=== PATIENT | male | born 1995 | race Caucasian/White ===

== ENCOUNTER 2019-12-14 18:09 | Emergency (ER) | payer SELFPAY ==
[~2019-12-14] VITALS: Ht 172.7 cm; Wt 75.3 kg
--- NOTE | 2019-12-14 18:09 | NUR ---
Patient BIB [facility] for pre-booking medical screening exam, transferred to bed [facility].
[2019-12-14 18:12] VITALS: BP 106/63
--- NOTE | 2019-12-14 18:17 | NUR ---
24 Y/O MALE BIB [facility] FOR PREBOOK CLEARANCE. PT WAS TASED ON SCENE BY [facility] FOR BEING NON-COMPLIANT. TASED TO RT RIB CAGE, PROBE REMOVED PRIOR TO ARRIVAL. PT STATES 6/10 PAIN TO TASED SITE. RR EVEN AND UNLABORED.
[2019-12-14] MEDS ORDERED: BACITRACIN OINT 500 UNITS/GM PKT TP ONE ×2 (18:18→18:25)
--- NOTE | 2019-12-14 18:21 | NUR ---
WOUND CLEANED WITH NORMAL SALINE, BACITRACIN APPLIED
[2019-12-14 18:26] VITALS: BP 106/63
--- NOTE | 2019-12-14 18:26 | NUR ---
PATIENT [facility]. PATIENT EXAMINED BY . PATIENT MEDICALLY CLEARED AND RELEASED IN CUSTODY IN STABLE CONDITION. ORIGINAL PRE-BOOK FORM GIVEN TO OFFICER RICKEY.
== END 2019-12-14 18:26 | disposition home or self-care (01) ==
LOC: MED 18:09
DX: S29.9XXA Unspecified injury of thorax, initial encounter (principal); S89.91XA Unspecified injury of right lower leg, initial encounter; Z02.89 Encounter for other administrative examinations; Y35.833A Legal intervention involving a conducted energy device, suspect injured, initial encounter; Y93.89 Activity, other specified; Y92.89 Other specified places as the place of occurrence of the external cause; Y99.8 Other external cause status
CPT/HCPCS: 99283